=== PATIENT | female | born 1945 | race African-American/Black ===

== ENCOUNTER 2020-09-29 04:27 | Day surgery (SDC) | payer OTHER ==
[2020-09-19 14:50] VITALS: BMI 38.5
[2020-09-29] MEDS ORDERED: HEPARIN NA (PORCINE) 5,000 UNITS/ML 1ML VIAL ONE (10:57)
[2020-09-29] MEDS ORDERED: ceFAZolin SODIUM 1 GM VIAL IVPB ONE ×2 (11:27→11:37)
[2020-09-29] MEDS ORDERED: PROPOFOL 20 ML ONE (11:32)
[2020-09-29] MEDS ORDERED: oxyCODONE HCL 5 MG TABLET PO PRN ×2 (11:39)
[2020-09-29] MEDS ORDERED: ONDANSETRON 4 MG/2 ML VIAL IVPUSH PRN (11:39)
[2020-09-29] MEDS ORDERED: LACTATED RINGERS SOLUTION 1,000 ML IV SCH (11:45)
[2020-09-29] MEDS ORDERED: LIDOCAINE HCL 1%, 10 MG/ML (20ML VIAL) SQ ONE (11:48)
[2020-09-29] MEDS ORDERED: HEPARIN NA (PORCINE) 5,000 UNITS/ML 1ML VIAL IV ONE (11:49)
[2020-09-29 12:57] VITALS: TEMP 98.2
[2020-09-29 13:38] VITALS: BP 142/79; PULSE 74
== END 2020-09-29 13:50 | disposition home or self-care (01) ==
LOC: JASU-SURG 04:27
PROVIDERS: ATTEND Surgery Vascular Surgery
PROC: B41DYZZ Fluoroscopy of Aorta and Bilateral Lower Extremity Arteries using Other Contrast (ICD-10-PCS; principal; 2020-09-29 10:30)
DX: I70.211 Atherosclerosis of native arteries of extremities with intermittent claudication, right leg (principal)
CPT/HCPCS: 75710-TC-FY; 76000-TC-FY; 94760; J1644